=== PATIENT | female | born 1970 | race Asian ===

== ENCOUNTER 2024-10-27 14:23 | Outpatient (REF) | payer OTHER, SELFPAY ==
--- NOTE | ~2024-10-27 | US_ITS ---
EXAMINATION: US PELVIS CLINICAL INFORMATION: Dysmenorrhea, pelvic mass, enlarged uterus. COMPARISON: None available. TECHNIQUE: Ultrasound of the pelvis is performed using both transabdominal and transvaginal transducers along with Doppler. Transvaginal imaging is performed due to inadequate visualization transabdominally. FINDINGS: Mildly limited exam due to iso-positioning of the uterus, indication pain during the exam, limiting transabdominal views. Uterus: The uterus is anteverted but retroflexed, and measures 4.2 x 5.0 x 7.2 cm[address] Because [address] the place of positioning of the uterus, visualization on transvaginal imaging is suboptimal. Normal-appearing cervix. The double wall endometrial thickness is 7 mm. It is uniform without irregularity. The uterus is smooth in contour and has heterogeneous myometrial echogenicity. There is a dominant left mid uterine segment fibroid, which may be submucosal in location, measuring 3.0 x 2.6 x 2.9 cm. No definite additional fibroid seen. Adnexa: Both ovaries are visualized. There is normal color flow to the adnexa. There is no ovarian torsion. There is no pelvic ascites or fluid collection. There are no adnexal masses. Right ovary measures 2.3 x 1.2 x 2.0 cm. Volume = 2.9 mL. Normal sonographic appearance. Left ovary measures 3.8 x 1.5 x 2.0 cm. Volume = 6.0 mL. Normal sonographic appearance. US/US pelvic and transvaginal IMPRESSION: 1. Mildly limited exam due to iso-positioning of the uterus, indication pain during the exam, limiting transabdominal views. 2. There is a normal endometrium measuring 7 mm. No thickening or irregularity. 3. There is a left probable submucosal mid uterine segment fibroid measuring 3.0 x 2.6 x 2.9 cm. No definite additional fibroids. 4. Normal ovaries bilaterally. 5. No free fluid. Electronically signed by: Singh Iqbal MD 10/27/2024 03:24 PM [facility]
--- OUTSIDE RECORDS SUMMARY | 2024-10-27 17:33 | XMS_ITS | Encounter Summary ---
Author Organization [employer] Address [address] [facility] 7[address] [place] [address] Care Team Providers Care Process Control Board Operator Name Role Phone [facility] Primary Care Provider [phone] Reason for Visit * Reason Onset Date Comments request corrected order 10/27/2024 Encounter Details Date Type Department Care Team (Late st Contact Info) Description 10/27/[address] [facility] MEDICAL [address] [place] [address] [facility] [address] [place] [address] request corrected order Social History Tobacco Use Types Packs/Day Years Used Date Smoking Tobacco: Never Passive Smoke Exposure: Current Smokeless Tobacco: Never Alcohol Use Standard Drinks/Week Comments Yes 0 (1 standard drink = 0.6 oz pur e alcohol) ocassionally Housing Stability Answer Date Recorded What is your housing situation today? I have carline card 10/20/[address] you li ve. Do you have problems with any of the following? None of the above 10/20/2024 Food Insecurity Answer Date Recorded Within the past 12 months, y ou worried that your food would run out before you got money to buy more: Never True 10/20/2024 Within the past 12 months,th e food you bought just didn't last and you didn't have enough money to get more: Never True Transportation Answer Date Recorded In the past 12 months, has l ack of transportation kept you from medical appts, meetings, work or from getting things needed for daily living? No 10/20/2024 Utilities Answer Date Recorded In the past 12 months, has t he electric, gas, oil or water company threatened to shut off services in your home? No 10/20/2024 Depression Answer Date Recorded Patient Health Questionnaire-2 Score 0 10/20/2024 Internet Access Answer Date Recorded Internet Access Q1 Yes 10/20/2024 Internet Access Q2 Not on file 10/20/2024 Comments Unknown Sex and Gender Information Value Date Recorded Sex Assigned at Female 07/26/2024 12:32 PM EST Legal Sex Female 12:31 PM EST Gender Identity Female 07/26/2024 12:32 PM EST Sexual Orientation Straight 09/27/2024 12 :03 PM EST documented as of this encounter Miscellaneous Notes * Telephone Encounter - Su Khan RN - 10/27/2024 3:19 PM EST To PCP to amend order * Telephone Encounter - Xochitl Dos Santos - 10/27/2024 2:48 PM EST Lauren ([facility]'s scheduling dept on behalf of radiology) called stating I'm calling to request a corrected order for an altrasound we received for the patient by VF, I need it to rafat pelvic complete in addition to the transvaginal, please fax it over to us at fax number: [phone], thank you. Lauren's best call back number if there are any questions at phone number: [phone], okay to leave detailed message on voicemail. Thank you! documented in this encounter Plan of Treatment Upcoming Encounters Date Type Department Care Team (Late st Contact Info) Description 11/30/2024 10:00 AM EDT Office Visit Frank [facility] [address] [place] [address] [facility] [address] [place] [address] documented as of this encounter Visit Diagnoses Not on filedocumented in this encounter Care Teams Process Control Board Operator Relationship Specialty Start Date End Date Gillian Nieves FNP [address] [facility] [place] [address] PCP - General Family Medicine 09/27/24 documented as of this encounter
--- OUTSIDE RECORDS SUMMARY | 2024-10-27 17:33 | XMS_ITS | Encounter Summary ---
Author Organization [email or web address] Address [address] [facility] 7[address] [place] [address] Care Team Providers Care Casino Supervisor Name Role Phone Gillian Nieves LUCIUS Primary Care Provider [phone] Encounter Details Date Type Department Care Team (Late st Contact Info) Description 10/26/2024 10:00 AM EST Immunization Rendon [facility] MED[facility] [address] [place] [address] Need for vaccination (Primary Dx) Social History Tobacco Use Types Packs/Day Years [...] PM EST documented as of this encounter Progress Notes * Su Khan RN - 10/26/2024 10:00 AM EST Mag Marshall 1970 presents with patient and family member today for a nurse- led vaccination administration: Flu, COVID, MMR and Hep B #1 visit. Subjective: Patient reports feeling well today; denies: fever, chills, cold symptoms over the last 24 hours. Objective: There were no vitals taken for this visit. Brief physical exam completed with patient fully clothed: GENERAL: Well-appearing female in no acute distress. HEENT: No scleral icterus. Moist mucous membranes. No nasal discharge. PULMONARY: Breathing comfortably on room air. MUSCULOSKELETAL: Gait appropriate and symmetric. EXTREMITIES: Warm and well perfused. NEUROLOGIC: Motor function grossly intact. Assessment: Patient is due for vaccination administration: Flu, COVID, MMR and Hep B #1. Patient is healthy andwell-appearing and denies questions necessitating provider visit. Patient is eligible for a nurse-led visit. Educated patient on procedure. Reviewed possible sided effects of vaccination and provided VIS in patient preferred language. . Patient has no additional questions. Obtained verbal consent to continue with visit. Administration documented. Patient had no adverse reactions to administration. Plan: Call with questions or concerns. Next visit with nurse: DONTA Next visit with provider: 11/30/24 Patient meets criteria for entirety of visit to be completed by nurse today. Visit led and completed by Su Khan RN. documented in this encounter Plan of Treatment Upcoming Encounters Date Type Department Care Team (Late st Contact Info) Description 11/30/2024 10:00 AM EDT Office Visit [facility]z [facility] MED[facility] [address] [place] [address] Gillian Nieves FNP [address] [place] [address] documented as of this encounter Visit Diagnoses Diagnosis Need for vaccination- Primary Need for prophylactic vaccination and inoculation against unspecified single disease documented in this encounter Care Teams Casino Supervisor Relationship Specialty Start Date End Date Gillian Nieves FNP 70 [facility] [place] [place] [address] PCP - General Family Medicine 09/27/24 documented as of this encounter
--- OUTSIDE RECORDS SUMMARY | 2024-10-27 17:34 | XMS_ITS | Encounter Summary ---
Author Organization [employer] Address [address] [place] [address] [address] [address] Care Team Providers Care Mysql Database Administrator Name Role Phone Gillian Nieves Primary Care Provider [phone] Reason for Referral * Consultation (Urgent) - Pending Review Specialty Diagnoses / Procedures Referred By Katerin snow Referred To Contact Obstetrics and Gynecology Diagnoses Menorrhagia with regular cycle Dysmenorrhea Pelvic mass Gillian Nieves FNP [address] [place], [place] Phone: tel: fax: Blayne Ortiz MD [address] [place] [address] Phone: tel: fax: Referral ID Status Reason Start Date Expiration Date Visits Requested Visits Authorized [id number] Pending Review Specialty Services Required 10/20/2024 10/20/2025 1 1 * Imaging (Urgent) - Pending Review Specialty Diagnoses / Procedures Referred By Katerin snow Referred To Contact Radiology Diagnoses Menorrhagia with regular cycle Dysmenorrhea Pelvic mass Procedures US Pelvis Transvaginal Gillian Nieves FNP [address] [place], [place] Phone: tel: fax: [facility] Referral ID Status Reason Start Date Expiration Date V isits Requested Visits Authorized [id number] Pending Review 10/20/2024 10/20/2025 1 1 * Imaging (Routine) - Pending Review Specialty Diagnoses / Procedures Referred By Katerin snow Referred To Contact Radiology Diagnoses Encounter for screening mammogram for malignant neoplasm of breast Procedures BI Mammogram Screening Bilateral Gillian Nieves FNP [address] [place] [address] Phone: tel: fax: [facility] Referral ID Status Reason Start Date Expiration Date V isits Requested Visits Authorized [id number] Pending Review 10/20/2024 10/20/2025 1 1 Reason for Visit * Reason Comments NPV Encounter Details Date Type Department Care Team (Late st Contact Info) Description 10/20/2024 9:00 AM EST Office Visit [facility] MED[facility] [address] [place] [address] Gillian Nieves FNP [address] [place] [address] Menorrhagia with regular cycle (Primary Dx); Dysmenorrhea; Pelvic mass; Dizziness; Eustachian tube dysfunction, left; Immunity status testing; Screening for tuberculosis; Encounter for screening mammogram for malignant neoplasm of breast; Health care maintenance Social History Tobacco Use Types Packs/Day Years Used Date Smoking Tobacco: Never Passive Smoke Exposure: Current Smokeless Tobacco: Never Tobacco Cessation:Counseling Given: Not Answered Alcohol Use Standard Drinks/Week Comments Yes 0 [...] PM EST documented as of this encounter Last Filed Vital Signs Vital Sign Reading Time Taken Comments Blood Pressure 110/68 10/20/2024 8:54 AM EST Pulse 80 10/20/2024 8:54 AM EST Temperature 36.8 ??C (98.2 ??F) 10/20/2024 8:54 AM ES T Respiratory Rate 16 10/20/2024 8:54 AM EST Oxygen Saturation 98% 10/20/2024 8:54 AM EST Inhaled Oxygen Concentration - - Weight 54.5 kg (120 lb 3.2 oz) 10/20/2024 8:54 A M EST Height 156.8 cm (5' 1.75 ) 10/20/2024 8:54 AM ES T Body Mass Index 22.16 10/20/2024 8:54 AM EST documented in this encounter Patient Instructions * Patient Instructions* LUCIUS Carlson - 10/20/2024 9:00 AM EST Go for blood work (no appointment needed). [facility] [address] [place], [place] Schedule pelvic ultrasound documented in this encounter Progress Notes * Theresa Tran RN - 10/20/2024 9:00 AM EST Subjective Patient ID: Mag Marshall is a 54 y.o. female who presents for NPV. She speaks French and visit today is translated by her daughter. Current Outpatient Medications on File Prior to Visit Medication Sig Dispense Refill Multiple Vitamin (multivitamin) capsule Take 1 capsule by mouth Once per day. No current facility-administered medications on file prior to visit. No Known Allergies Past Medical History: Diagnosis Date Hypotension HPI [place]oved [place], then went back to [facility], and came back on Thursday. Saw doctor in [facility] and got Tdap vaccine and colonoscopy - was told this was okay. Dizziness Has a lot of problems with dizziness and headaches. Gets worse after traveling, but is always present. Top of her head has headaches, which are worse during her period. Advil helps with the headaches. Dizziness when she stands up too fast. No falls or LOC. This dizziness happens everyday. Gets worse with period - 25 day cycle, heavy bleeding. GI Per daughter, acid reflux. Acid reflux. Doesn't eat often, gets stressed out a lot. No vomiting. No diarrhea. 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 Alcohol upsets her stomach. Memory Reports that she is forgetful, concerned due to family hx of dementia. Not forgetting appointments or names of family members. LIBRARY INFORMATION TECHNICIAN 25 day cycle. Periods are very heavy, last 7 days. Thinks she is in perimenopause. No hot flashes, no trouble sleeping. Very painful, lots of cramping. Significantly heavier and more painful than when she was younger. Dizziness is worse right after menses. Reports that her hands and feet are very cold. Had a pelvic exam in 2021 with a Pap smear in [place] - unsure of results. Bumps around scar, have been there 7-8 years. Left Ear May to August 2023, had an ear infection and was on medication. Was treated for this in [place] and prescribed antibiotics for several months. Reports that hearing in her left ear is now not good. No pain, no difficulty swallowing. No sore throat, no congestion. Experienced hearing changes and ear popping during flight from [place] as well as during driving over hills. Review of Systems Constitutional: Negative for activity change, fatigue, fever and unexpected weight change. HENT: Positive for hearing loss. Negative for congestion, sore throat and trouble swallowing. Eyes: Negative for visual disturbance. Respiratory: Negative for cough and shortness of breath. Cardiovascular: Negative for chest pain and leg swelling. Gastrointestinal: Negative for diarrhea and vomiting. Endocrine: Negative. Genitourinary: Positive for menstrual problem, pelvic pain and vaginal bleeding. Negative for dysuria and vaginal pain. Musculoskeletal: Negative for arthralgias and myalgias. Neurological: Positive for dizziness and light-headedness. Negative for syncope. Psychiatric/Behavioral: Negative. Objective Vitals: 10/20/24 0854 BP: 110/68 BP Location: Right arm Patient Position: Sitting BP Cuff Size: Adult Pulse: 80 Resp: 16 Temp: 98.2 ??F (36.8 ??C) TempSrc: Temporal SpO2: 98% Weight: 120 lb 3.2 oz (54.5 kg) Height: 5' 1.75 (1.568 m) Physical Exam Constitutional: Appearance: Normal appearance. She is not ill-appearing. HENT: Head: Normocephalic and atraumatic. Right Ear: Tympanic membrane normal. Left Ear: Tympanic membrane normal. Ears: Comments: Ear canals slightly erythematous bilaterally. Mouth/Throat: Mouth: Mucous membranes are moist. Pharynx: Oropharynx is clear. No oropharyngeal exudate or posterior oropharyngeal erythema. Eyes: General: No scleral icterus. Conjunctiva/sclera: Conjunctivae normal. Pupils: Pupils are equal, round, and reactive to light. Cardiovascular: Rate and Rhythm: Normal rate and regular rhythm. Pulses: Normal pulses. Heart sounds: Normal heart sounds. No murmur heard. No friction rub. No gallop. Pulmonary: Effort: Pulmonary effort is normal. Breath sounds: Normal breath sounds. Abdominal: General: Abdomen is flat. Bowel sounds are normal. Palpations: There is mass. Tenderness: There is abdominal tenderness. Comments: Uterus is enlarged, palpable 2 finger breadths below umbilicus. It is firm and tender to palpation. Musculoskeletal: Cervical back: Normal range of motion and neck supple. No tenderness. Lymphadenopathy: Cervical: No cervical adenopathy. Neurological: Mental Status: She is alert. Assessment/Plan 1. Menorrhagia with regular cycle (Primary) Patient reports heavy bleeding with menses, soaking through pads and tampons. Severe cramping during bleeding. Much heavier and more painful than when she was younger, ongoing for several years. Feels dizzy immediately following menses. Uterus is enlarged and firm today on exam. We will order transvaginal US, refer to LIBRARY INFORMATION TECHNICIAN. Discussed with patient and her daughter that we are ruling out cancer, suspect uterine leiomyomas causing pain and increased bleeding. They are in agreement with plan. - US Pelvis Transvaginal - Referral to Gynecology 2. Dysmenorrhea As above. - US Pelvis Transvaginal - Referral to Gynecology 3. Pelvic mass As above. - US Pelvis Transvaginal - Referral to Gynecology 4. Dizziness Suspect symptoms are secondary to anemia as a result of menorrhagia. We will check CBC. We will rule out other causes: electrolyte derangements, thyroid dysfunction. Recommend increased fluids, changing positions slowly. - Comprehensive Metabolic Panel - CBC auto differential - TSH 5. Eustachian tube dysfunction, left Patient reports ear pressure and hearing changes, specifically after flying as well as when drivingover hills. We will prescribe fluticasone intranasal spray. Follow up if symptoms worsen or fail to improve with therapy. - fluticasone (Flonase) 50 MCG/ACT nasal spray; Administer 2 sprays into each nostril Once per day.Shake gently. Before first use, prime pump. After use, clean tip and replace cap. Dispense: 16 g; Refill: 5 6. Immunity status testing Patient with vaccine history from [place] showing Tdap, Covid-19 and flu vaccines. We will check immunity to hep A, B, MMR, varicella. - Hepatitis A Antibody, Total; Future - Hepatitis B Core Antibody, Total; Future - Hepatitis B Surface Antibody, Qualitative; Future - Hepatitis B Surface Antigen with Reflex Confirmation; Future - Measles Antibody (IgG), Immune Status; Future - Mumps Virus Antibody (IgG), Immune Status; Future - Rubella Antibody (IgG), Immune Status; Future - Varicella zoster antibody, IgG; Future 7. Screening for tuberculosis As above. - QuantiFERON TB Gold 8. Encounter for screening mammogram for malignant neoplasm of breast Patient with family history of breast cancer. Has never had a mammogram, we will order. - BI Mammogram Screening Bilateral 9. Health care maintenance Patient reports Pap in 2021 in [place]. We are referring to LIBRARY INFORMATION TECHNICIAN due to pelvic mass and menorrhagia, we will defer Pap. Follow up in about 6 weeks (around 12/01/2024) for In person follow up, w/ VF heavy periods. Visit performed by Theresa Tran RN, MSN METAL FABRICATOR Student [facility] Cosigned by LUCIUS Carlson at 10/20/2024 1:31 PM EST Associated attestation - Gillian Nieves FNP - 10/20/2024 1:31 PM EST I was present with the medical / health professions student who participated in the documentation of the note. I personally evaluated the patient, reviewed the student's note and agree with the findings and plan as written. GERI Carlson, METAL FABRICATOR-C Sammy [address] [address] documented in this encounter Plan of Treatment Upcoming Encounters Date Type Department Care Team (Late st Contact Info) Description 11/30/2024 10:00 AM EDT Office Visit [facility] [address] [place] [id number] Gillian Nieves FNP [address] [place] [address] Scheduled Orders Name Type Priority Associated Diagnoses Orde r Schedule BI Mammogram Screening Bilateral Imaging Routine Encounter for screening mammogram for malignant neoplasm of breast Expected: 10/20/2024, Expires: 12/18/2025 US Pelvis Transvaginal Imaging Urgent Menorrhagia with regular cycle Dysmenorrhea Pelvic mass Expected: 10/20/2024 (Approximate), Expires: 10/20/2025 Scheduled Referrals Name Type Priority Associated Diagnoses Order Schedule Referral to Gynecology Outpatient Referral Urgent Menorrhagia with regular cycle Dysmenorrhea Pelvic mass Expected: 10/20/2024 (Approximate), Expires: 10/20/2025 documented as of this encounter Procedures Procedure Name Priority Date/Time Associated Diagnosis Comments QUANTIFERON TB GOLD Routine 10/20/2024 Screening for tuberculosis CBC WITH AUTO DIFFERENTIAL Routine 10/20/2024 Dizziness HEPATITIS A ANTIBODY, TOTAL Routine 10/20/2024 Immunity status testing MEASLES AB (IGG), IMMUNE STATUS Routine 10/20/2024 Immunity status testing HEPATITIS B CORE AB TOTAL Routine 10/20/2024 Immunity status testing RUBELLA AB (IGG), IMMUNE STATUS Routine 10/20/2024 Immunity status testing HEPATITIS B SURFACE ANTIBODY, QUALITATIVE Routine 10/20/2024 Immunity status testing HEPATITIS B SURFACE ANTIGEN W/REFL CONFIRM Routine 10/20/2024 Immunity status testing VARICELLA ZOSTER ANTIBODY, IGG Routine 10/20/2024 Immunity status testing MUMPS ANTIBODY IGG Routine 10/20/2024 Immunity status testing TSH Routine 10/20/2024 Dizziness COMPREHENSIVE METABOLIC PANEL Routine 10/20/2024 Dizziness documented in this encounter Results * QuantiFERON TB Gold (10/20/2024) Blood Venous blood specimen / Unknown [facility] LAB BLOOD ORDERABLES Vee l Result EXTERNAL LAB * Varicella zoster antibody, IgG (10/20/2024) Blood Venous blood specimen / Unknown [facility] LAB BLOOD ORDERABLES Vee l Result EXTERNAL LAB * Rubella Antibody (IgG), Immune Status (10/20/2024) Blood Venous blood specimen / Unknown [facility] LAB BLOOD ORDERABLES Vee l Result Performing Organization Address [facility] Co de Phone Number EXTERNAL LAB * Mumps Virus Antibody (IgG), Immune Status (10/20/2024) Blood Venous blood specimen / Unknown [facility] LAB BLOOD ORDERABLES Vee l Result Performing Organization Address [facility] Co de Phone Number EXTERNAL LAB * Measles Antibody (IgG), Immune Status (10/20/2024) Blood Venous blood specimen / Unknown [facility] LAB BLOOD ORDERABLES Vee l Result Performing Organization Address [facility] de Phone Number EXTERNAL LAB * Hepatitis B Surface Antigen with Reflex Confirmation (10/20/2024) Blood Venous blood specimen / Unknown [facility] LAB BLOOD ORDERABLES Vee l Result Performing Organization Address [facility] de Phone Number EXTERNAL LAB * Hepatitis B Surface Antibody, Qualitative (10/20/2024) Blood Venous blood specimen / Unknown [facility] LAB BLOOD ORDERABLES Vee l Result Performing Organization Address [facility] Co de Phone Number EXTERNAL LAB * Hepatitis B Core Antibody, Total (10/20/2024) Blood Venous blood specimen / Unknown [facility] LAB BLOOD ORDERABLES Vee l Result Performing Organization Address City/[facility] Co de Phone Number EXTERNAL LAB * Hepatitis A Antibody, Total (10/20/2024) Blood Venous blood specimen / Unknown [facility] LAB BLOOD ORDERABLES Vee l Result Performing Organization Address City/[facility] Co de Phone Number EXTERNAL LAB * TSH (10/20/2024) Blood Venous blood specimen / Unknown [facility] LAB BLOOD ORDERABLES Vee l Result Performing Organization Address City/[facility] Co de Phone Number EXTERNAL LAB * CBC auto differential (10/20/2024) Blood Venous blood specimen / Unknown [facility] LAB BLOOD ORDERABLES Vee l Result Performing Organization Address [facility] Co de Phone Number EXTERNAL LAB * Comprehensive Metabolic Panel (10/20/2024) Blood Venous blood specimen / Unknown Result [facility] LAB BLOOD ORDERABLES Vee l Result Performing Organization Address [facility] de Phone Number EXTERNAL LAB documented in this encounter Visit Diagnoses Diagnosis Menorrhagia with regular cycle- Primary Dysmenorrhea Pelvic mass Abdominal or pelvic swelling, mass or lump, unspecified site Dizziness Dizziness and giddiness Eustachian tube dysfunction, left Immunity status testing Antibody response examination Screening for tuberculosis Screening examination for pulmonary tuberculosis Encounter for screening mammogram for malignant neoplasm of breast Health care maintenance documented in this encounter Care Teams Mysql Database Administrator Relationship Specialty Start Date End Date [facility] [address] [place] [address] PCP - General Family Medicine 09/27/24 documented as of this encounter
--- OUTSIDE RECORDS SUMMARY | 2024-10-27 17:34 | XMS_ITS | Encounter Summary ---
Author Organization [employer] Address [address] [place] [address] 7[address] [place] [address] Care Team Providers Care Manager Food Name Role Phone [facility] Primary Care Provider [phone] [phone] Reason for Visit * Reason Onset Date Comments Results 10/24/2024 Encounter Details Date Type Department Care Team ([facility] st Contact Info) Description 10/24/2024 Telephone [facility] [address] [place] [address] [facility] [address] [place] [address] Results Social History Tobacco Use Types Packs/Day Years [...] encounter Miscellaneous Notes * Telephone Encounter - Antonia Laws LPN - 10/25/2024 9:34 AM EST Call placed to patient via loom winder tender # [id number]. LMOM to CB. * Telephone Encounter - LUCIUS Carlson - 10/24/2024 3:39 PM EST Labs show iron deficiency anemia, recommend starting PO iron, rx sent. Not immune to hepatitis B, measles or mumps. Recommend nurse visit for vaccines, looks like she is already scheduled for this week? documented in this encounter Plan of Treatment Upcoming Encounters Date Type Department Care Team (Late st Contact Info) Description 11/30/2024 10:00 AM EDT Office Visit [facility] [address] [place] [address] Gillian Nieves FNP [address] [place] [address] documented as of this encounter Visit Diagnoses Diagnosis Iron deficiency anemia, unspecified iron deficiency anemia type- Primary documented in this encounter Care Teams Manager Food Relationship Specialty Start Date End Date Gillian Nieves FNP [address] [place] [address] PCP - General Family Medicine 09/27/24 documented as of this encounter
--- OUTSIDE RECORDS SUMMARY | 2024-10-27 17:34 | XMS_ITS | Clinical Summary ---
Author Organization [employer] Address [address] [place] [address] 7 [place] [address] Care Team Providers Care Data Review Specialist Name Role Phone [facility] Primary Care Provider +1 [phone] Allergies No known active allergies Medications Multiple Vitamin (multivitamin) capsule Take 1 capsule by mouth Once per day. Active fluticasone (Flonase) 50 MCG/ACT nasal sprayIndications :Eustachian tube dysfunction, left Administer 2 sprays into each nostril Once per day. Shake gently. Before first use, prime pump. After use, clean tip and replace cap. 16 g 5 5 10/20/19 26 Active ferrous sulfate (Fe Tabs) 325 (65 Fe) MG EC tabletIndication s:Iron deficiency anemia, unspecified iron deficiency anemia type Take 1 tablet (325 mg) by mouth with breakfast. Do not crush, chew, or split. 90 tablet 5 Active Active Problems Problem Noted Date Diagnosed Date Iron deficiency anemia 10/24/2024 Encounters Date Type Department Care Team Description 10/27/2024 Telephone [facility] [address] [place] [address] Gillian Nieves FNP request corrected order 10/26/2024 10:00 AM EST Immunization [facility] [address] [place] [address] Need for vaccination (Primary Dx) 10/24/2024 Telephone [facility] [address] [place] [address] Gillian Nieves FNP Results 10/24/2024 Telephone [place] [facility] [address] [place] [address] Gillian Nieves FNP add on lab 10/20/2024 9:00 AM EST Office Visit [facility] [address] [place] [address] Gillian Nieves FNP Menorrhagia with regular cycle (Primary Dx); Dysmenorrhea; Pelvic mass; Dizziness; Eustachian tube dysfunction, left; Immunity status testing; Screening for tuberculosis; Encounter for screening mammogram for malignant neoplasm of breast; Health care maintenance from Last 3 Months Immunizations Name Administration Dates Next Due Hep B, adult 10/26/2024 Influenza, IIV3, injectable 01/21/2024 Influenza, Injectable, MDCK, w/preservative 10/02 MMR 10/26/2024 Moderna Covid-19 Vaccine 12+ 10/26/2024 SARS-CoV-2, Unspecified 08/30/2021,05/03/2021, Tdap 01/21/2024 Family History Medical History Relation Name Comments Diabetes type II Father Breast cancer Maternal Grandmother Dementia Mother Diabetes type II Mother Relation Name Status Comments Father Maternal Grandmother Mother Social History Tobacco Use Types Packs/Day Years [...] Orientation Straight 09/27/2024 12 :03 PM EST Last Filed Vital Signs Vital Sign Reading [...] Mass Index 22.16 10/20/2024 8:54 AM EST Plan of Treatment Upcoming Encounters Date Type Department Care Team (Late st Contact Info) Description 11/30/2024 10:00 AM EDT Office Visit [place] [facility] [address] [place] [address] [facility] Gillian [facility] [address] [place] [address] Health Maintenance Due Date Last Done Comments CT Colonography 1972 Colonoscopy 1972 Colorectal Cancer Screening 1972 FIT DNA/Cologuard 1972 FIT 1972 FOBT 1972 HIV Screening 1972 Sigmoidoscopy 1972 Alcohol/Substance Use Screening 1984 Family Planning (PISQ) 1987 Hepatitis C Screening 1990 Pap Smear 1993 Cervical Cancer Screening 2002 HPV/Cotest 2002 Mammogram 2012 Pneumococcal Vaccine: 50+ Years (1 of 1 - PCV) 2022 Zoster Vaccines (1 of 2) 2022 Influenza Vaccine (#1) 2024 10/26/2024, 2023 Hepatitis B Vaccines (2 of 3 - 19+ 3-dose series) 11/23/2024 10/26/2024 Depression Screening 10/20/2025 10/20/2024, 10/20/19 SDOH Screening 10/20/2025 10/20/2024 Tobacco Screening 10/20/2025 10/20/2024 DTaP/Tdap/Td Vaccines (2 - Td or Tdap) 01/20/2034 01/21/2024 RSV Patients and Patients Aged 60 years or older (1 - 1-dose 75+ series) 2047 COVID-19 Vaccine Completed 10/26/2024, , 05/03/2021, Additional history exists HIB Vaccines Aged Out No longer eligi ble based on patient's age to complete this topic HPV Vaccines Aged Out No longer eligi ble based on patient's age to complete this topic Hepatitis A Vaccines Aged Out No long er eligible based on patient's age to complete this topic IPV Vaccines Aged Out No longer eligi ble based on patient's age to complete this topic Meningococcal Vaccine Aged Out No jenni rebekah eligible based on patient's age to complete this topic RSV under 20 months Aged Out No longe r eligible based on patient's age to complete this topic Rotavirus Vaccines Aged Out No longer eligible based on patient's age to complete this topic Procedures Procedure Name Priority Date/Time Associated Diagnosis Comments IRON AND TOTAL IRON BINDING CAPACITY Routine 10/20/2024 Anemia, unspecified type QUANTIFERON TB GOLD Routine 10/20/2024 Screening for tuberculosis VARICELLA ZOSTER ANTIBODY, IGG Routine 10/20/2024 Immunity status testing RUBELLA AB (IGG), IMMUNE STATUS Routine 10/20/2024 Immunity status testing MUMPS ANTIBODY IGG Routine 10/20/2024 Immunity status testing MEASLES AB (IGG), IMMUNE STATUS Routine 10/20/2024 Immunity status testing HEPATITIS B SURFACE ANTIGEN W/REFL CONFIRM Routine 10/20/2024 Immunity status testing HEPATITIS B SURFACE ANTIBODY, QUALITATIVE Routine 10/20/2024 Immunity status testing HEPATITIS B CORE AB TOTAL Routine 10/20/2024 Immunity status testing HEPATITIS A ANTIBODY, TOTAL Routine 10/20/2024 Immunity status testing TSH Routine 10/20/2024 Dizziness CBC WITH AUTO DIFFERENTIAL Routine 10/20/2024 Dizziness COMPREHENSIVE METABOLIC PANEL Routine 10/20/2024 Dizziness from Last 3 Months Results * QuantiFERON TB Gold (10/20/2024) Blood Venous blood specimen / Unknown [facility] LAB BLOOD ORDERABLES Vee l Result EXTERNAL LAB * CBC auto differential (10/20/2024) Blood Venous blood specimen / Unknown [facility] LAB BLOOD ORDERABLES Vee l Result EXTERNAL LAB * Iron And Total Iron Binding Capacity (10/20/2024) Blood Venous blood specimen / Unknown [facility] LAB BLOOD ORDERABLES Vee l Result Performing Organization Address City/[facility]/ZIP Co de Phone Number EXTERNAL LAB * Hepatitis A Antibody, Total (10/20/2024) Blood Venous blood specimen / Unknown [facility] LAB BLOOD ORDERABLES Vee l Result Performing Organization Address City/[facility]/ZIP Co de Phone Number EXTERNAL LAB * Measles Antibody (IgG), Immune Status (10/20/2024) Blood Venous blood specimen / Unknown [facility] LAB BLOOD ORDERABLES Vee l Result Performing Organization Address City/[facility]/[place] Co de Phone Number EXTERNAL LAB * Hepatitis B Core Antibody, Total (10/20/2024) Blood Venous blood specimen / Unknown [facility] LAB BLOOD ORDERABLES Vee l Result Performing Organization Address City/[facility]/ZIP Co de Phone Number EXTERNAL LAB * Rubella Antibody (IgG), Immune Status (10/20/2024) Blood Venous blood specimen / Unknown [facility] LAB BLOOD ORDERABLES Vee l Result Performing Organization Address City/[facility]/ZIP Co de Phone Number EXTERNAL LAB * Hepatitis B Surface Antibody, Qualitative (10/20/2024) Blood Venous blood specimen / Unknown [facility] LAB BLOOD ORDERABLES Vee l Result Performing Organization Address City/[facility]/ZIP Co de Phone Number EXTERNAL LAB * Hepatitis B Surface Antigen with Reflex Confirmation (10/20/2024) Blood Venous blood specimen / Unknown [facility] LAB BLOOD ORDERABLES Vee l Result EXTERNAL LAB * Varicella zoster antibody, IgG (10/20/2024) Blood Venous blood specimen / Unknown [facility] LAB BLOOD ORDERABLES Vee l Result EXTERNAL LAB * Mumps Virus Antibody (IgG), Immune Status (10/20/2024) Blood Venous blood specimen / Unknown [facility] LAB BLOOD ORDERABLES Vee l Result Performing Organization Address City/[facility]/ZIP Co de Phone Number EXTERNAL LAB * TSH (10/20/2024) Blood Venous blood specimen / Unknown [facility] LAB BLOOD ORDERABLES Vee l Result EXTERNAL LAB * Comprehensive Metabolic Panel (10/20/2024) Blood Venous blood specimen / Unknown [facility] LAB BLOOD ORDERABLES Vee l Result Performing Organization Address City/[facility]/ZIP Co de Phone Number EXTERNAL LAB from Last 3 Months Insurance [facility] Care Teams Data Review Specialist Relationship Specialty Start Date End Date Gillian Nieves FNP [address] [place] [address] PCP - General Family Medicine 09/27/24
--- OUTSIDE RECORDS SUMMARY | 2024-10-27 17:34 | XMS_ITS | Encounter Summary ---
Author Organization [employer] Address [address] [place] [address] Care Team Providers Care Payroll Benefits Clerk Name Role Phone [facility] Primary Care Provider [phone] Reason for Visit * Reason Onset Date Comments add on lab 10/24/2024 Encounter Details Date Type Department Care Team (Late st Contact Info) Description 10/24/2024 Telephone [facility] [address] [place] [address] [facility] [address] [place] [address] add on lab Social History Tobacco Use Types Packs/Day Years [...] Telephone Encounter - Su Khan RN - 10/24/2024 12:12 PM EST Labs can be added on. Faxed through [employer] and hand faxed to number provided: [phone] * Telephone Encounter - LUCIUS Carlson - 10/24/2024 11:42 AM EST Please see if [facility] can add on iron/TIBC to labs drawn last week. Order entered. documented in this encounter Plan of Treatment Upcoming Encounters Date Type Department Care Team (Late st Contact Info) Description 11/30/2024 10:00 AM EDT Office Visit [facility] [address] [place] [address] Gillian Nieves FNP [address] [place] [address] documented as of this encounter Procedures Procedure Name Priority Date/Time Associated Diagnosis Comments IRON AND TOTAL IRON BINDING CAPACITY Routine 10/20/2024 Anemia, unspecified type documented in this encounter Results * Iron And Total Iron Binding Capacity (10/20/2024) Blood Venous blood specimen / Unknown Gillian Nieves [facility] LAB BLOOD ORDERABLES Vee newman Result EXTERNAL LAB documented in this encounter Visit Diagnoses Diagnosis Anemia, unspecified type- Primary documented in this encounter Care Teams Payroll Benefits Clerk Relationship Specialty Start Date End Date Gillian Nieves [facility] [address] [place] [address] PCP - General Family Medicine 09/27/24 documented as of this encounter
== END 2024-10-27 14:24 | disposition home or self-care (01) ==
LOC: HO.HMGCX 14:23
PROVIDERS: PCP Nurse Practitioner; Visit Provider Nurse Practitioner
DX: N92.0 Excessive and frequent menstruation with regular cycle (principal); N94.6 Dysmenorrhea, unspecified
CPT/HCPCS: 76830; 76856

== ENCOUNTER → 2024-10-27 14:26 | Outpatient (BNV) | payer OTHER, SELFPAY | PROVIDERS: PCP Nurse Practitioner; Visit Provider Radiology Diagnostic Radiology | DX: N94.6 Dysmenorrhea, unspecified (principal) | CPT/HCPCS: 76830; 76856 ==

== ENCOUNTER → 2024-12-14 08:45 | Outpatient (BNV) | payer OTHER, SELFPAY | PROVIDERS: PCP Nurse Practitioner; Visit Provider Internal Medicine | DX: Z12.31 Encounter for screening mammogram for malignant neoplasm of breast (principal) | CPT/HCPCS: 77063; 77067 ==

== ENCOUNTER 2024-12-14 08:49 | Outpatient (REF) | payer OTHER, SELFPAY ==
--- OUTSIDE RECORDS SUMMARY | 2024-12-14 09:17 | XMS_ITS | Clinical Summary ---
Author Organization [employer] Address [address]t [place] [address] Care Team Providers Care Tight Barrel Inspector Name Role Phone Gillian Nieves LUCIUS Primary Care Provider [phone] [phone] Allergies No known active allergies Medications Multiple Vitamin (multivitamin) capsule Take 1 capsule by mouth Once per day. Active fluticasone (Flonase) 50 MCG/ACT nasal sprayIndicatio ns:Eustachian tube dysfunction, left Administer 2 sprays into each nostril Once per day. Shake gently. Before first use, prime pump. After use, clean tip and replace cap. 16 g 5 10/20/19 25 026 Active Additional Information Patient not taking.Reported on 11/30/2024 ferrous sulfate (Fe Tabs) 325 (65 Fe) MG EC tabletIndicati ons:Iron deficiency anemia, unspecified iron deficiency anemia type Take 1 tablet (325 mg) by mouth with breakfast. Do not crush, chew, or split. 90 tablet 12/01/19 25 Active ferrous sulfate (Fe Tabs) 325 (65 Fe) MG EC tabletIndicati ons:Iron deficiency anemia, unspecified iron deficiency anemia type Take 1 tablet (325 mg) by mouth with breakfast. Do not crush, chew, or split. 90 tablet 10/24/19 25 025 Discontinued(R eorder (will not trigger notification to Pharmacy)) Active Problems Problem Noted Date Diagnosed Date Iron deficiency anemia 10/24/2024 Encounters Date Type Department Care Team Description [facility]/02[facility] [address] [place] [address] [place], [place], DIE DESIGNER OB Referral 12/01/[address] [address] [place], [place], DIE DESIGNER Results 11/30/2024 10:00 AM EDT Office Visit [address] [address] [place], [place], DIE DESIGNER Menorrhagia with regular cycle (Primary Dx); Pelvic mass; Dysmenorrhea; Iron deficiency anemia, unspecified iron deficiency anemia type; Dizziness 10/27/2024 Telephone [facility] [address] [place] [address] [place], [place], DIE DESIGNER request corrected order 10/26/2024 10:00 AM EST Immunization [address] [address] Need for vaccination (Primary Dx) 10/24/[address] [address] [place], [place], DIE DESIGNER Results 10/24/[address] [address] [place], [place], DIE DESIGNER add on lab 10/20/2024 9:00 AM EST Office Visit [address] [address] [place], [place], DIE DESIGNER Menorrhagia with regular cycle (Primary Dx); Dysmenorrhea; [...] Sign Reading Time Taken Comments Blood Pressure 107/70 11/30/2024 9:52 AM EDT Pulse 79 11/30/2024 9:52 AM EDT Temperature 36.8 ??C (98.2 ??F) 11/30/2024 9:52 AM ED T Respiratory Rate 16 10/20/2024 8:54 AM EST Oxygen Saturation 99% 11/30/2024 9:52 AM EDT Inhaled Oxygen Concentration - - Weight 53.7 kg (118 lb 6.4 oz) 11/30/2024 9:52 A M EDT Height 156.8 cm (5' 1.75 ) 11/30/2024 9:52 AM ED T Body Mass Index 21.83 11/30/2024 9:52 AM EDT Plan of Treatment Upcoming Encounters Date Type Department Care Team (Late st Contact Info) Description 03/01/2025 9:40 AM EDT Office Visit [facility] [address] [place] [address] [place], [place] [facility] [address] [place] [address] Health Maintenance Due Date Last Done Comments [...] of 3 - 19+ 3-dose series) 11/23/2024 10/26/2024, 10/20/2024 Depression Screening 10/20/2025 10/20/2024, 10/20/19 25 SDOH Screening 10/20/2025 10/20/2024 Tobacco Screening 11/30/2025 11/30/2024 DTaP/Tdap/Td Vaccines (2 - Td or Tdap) [...] Procedure Name Priority Date/Time Associated Diagnosis Comments US PELVIS TRANSVAGINAL Urgent 10/27/2024 Menorrhagia with regular cycle Dysmenorrhea Pelvic mass IRON AND TOTAL IRON BINDING CAPACITY Routine [...] Dizziness from Last 3 Months Results * US Pelvis Transvaginal (10/27/2024) Anatomical Region Laterality Modality Pelvis Ultrasound [facility] IMG US PROCEDURES Final R esult * QuantiFERON TB Gold (10/20/2024) Blood Venous blood specimen / Unknown [facility] LAB BLOOD ORDERABLES Vee l Result Performing Organization Address [facility] de Phone Number EXTERNAL LAB * CBC auto differential (10/20/2024) Blood Venous blood specimen / Unknown [facility] LAB BLOOD ORDERABLES Vee l Result Performing Organization Address [facility] Co de Phone Number EXTERNAL LAB * Iron And Total Iron Binding Capacity (10/20/2024) Blood Venous blood specimen / Unknown [facility] LAB BLOOD ORDERABLES Vee l Result Performing Organization Address City/[facility] Co de Phone Number EXTERNAL LAB * Hepatitis A Antibody, Total (10/20/2024) Blood Venous blood specimen / Unknown [facility] LAB BLOOD ORDERABLES Vee l Result Performing Organization Address [facility] Co de Phone Number EXTERNAL LAB * Measles Antibody (IgG), Immune Status (10/20/2024) Blood Venous blood specimen / Unknown [facility] LAB BLOOD ORDERABLES Vee l Result Performing Organization Address City/[facility] Co de Phone Number EXTERNAL LAB * Hepatitis B Core Antibody, Total (10/20/2024) Blood Venous blood specimen / Unknown [facility] LAB BLOOD ORDERABLES Vee l Result Performing Organization Address [facility] Co de Phone Number EXTERNAL LAB * Rubella Antibody (IgG), Immune Status (10/20/2024) Blood Venous blood specimen / Unknown [facility] LAB BLOOD ORDERABLES Vee l Result Performing Organization Address [facility] de Phone Number EXTERNAL LAB * Hepatitis B Surface Antibody, Qualitative (10/20/2024) Blood Venous blood specimen / Unknown [facility] LAB BLOOD ORDERABLES Vee l Result Performing Organization Address [facility] de Phone Number EXTERNAL LAB * Hepatitis B Surface Antigen with Reflex Confirmation (10/20/2024) Blood Venous blood specimen / Unknown [facility] LAB BLOOD ORDERABLES Vee l Result Performing Organization Address [facility] Co de Phone Number EXTERNAL LAB * Varicella zoster antibody, IgG (10/20/2024) Blood Venous blood specimen / Unknown [facility] LAB BLOOD ORDERABLES Vee l Result Performing Organization Address City/[facility] Co de Phone Number EXTERNAL LAB * Mumps Virus Antibody (IgG), Immune Status (10/20/2024) Blood Venous blood specimen / Unknown [facility] LAB BLOOD ORDERABLES Vee l Result EXTERNAL LAB * TSH (10/20/2024) Blood Venous blood specimen / Unknown [facility] LAB BLOOD ORDERABLES Vee l Result EXTERNAL LAB * Comprehensive Metabolic Panel (10/20/2024) Blood Venous blood specimen / Unknown [facility] LAB BLOOD ORDERABLES Vee l Result Performing Organization Address City/[facility] Co de Phone Number EXTERNAL LAB from Last 3 Months Insurance [facility] Care Teams Tight Barrel Inspector Relationship Specialty Start Date End Date [facility] [address] [place] [address] PCP - General Family Medicine 09/27/24
== END 2024-12-14 08:50 | disposition home or self-care (01) ==
LOC: HO.MAMMO 08:49
PROVIDERS: PCP Nurse Practitioner; Visit Provider Nurse Practitioner
DX: Z12.31 Encounter for screening mammogram for malignant neoplasm of breast (principal)
CPT/HCPCS: 77063; 77067